=== PATIENT | female | born 1940 | race Caucasian/White ===

== ENCOUNTER 2022-03-07 12:07 | Outpatient (CLI) | payer MEDICARE, OTHER | END 2022-03-07 12:08 | disposition home or self-care (01) | LOC: CSHRAD 12:07 | PROVIDERS: ATTEND Neurological Surgery | DX: Z01.818 Encounter for other preprocedural examination (principal); M54.2 Cervicalgia; Z98.1 Arthrodesis status; Z20.822 Contact with and (suspected) exposure to COVID-19 | CPT/HCPCS: 72050; 80048; 85025; 85610; 85730; 87811 ==